=== PATIENT | male | born 1960 | race Caucasian/White ===

== ENCOUNTER 2021-12-01 11:32 | Emergency (ER) | payer OTHER ==
[~2021-12-01] VITALS: Ht 182.9 cm; Wt 90.7 kg
[2021-12-01] MEDS ORDERED: ONDANSETRON ODT4 MG PO (15:22)
--- NOTE | 2021-12-02 11:27 | EKG ---
[facility] [address] [facility] [place] [address] Signed Normal sinus rhythm Normal ECG No previous ECGs available Confirmed by BELKIS POLK MD ([id number]) on 12/02/2021 11:26:56 AM Electronically Signed By: BELKIS POLK MD 12/02/21 1127 PATIENT NAME: SAHIL ZAMORA Electrocardiogram DATE OF : 56 PHYSICIAN: BELKIS POLK MD REPORT #: [id number] REPORT IS CONFIDENTIAL AND NOT TO BE RELEASED WITHOUT AUTHORIZATION
== END 2021-12-01 15:26 | disposition home or self-care (01) ==
LOC: ED 11:32
DX: R19.7 Diarrhea, unspecified (principal); E86.0 Dehydration; Z20.822 Contact with and (suspected) exposure to COVID-19
CPT/HCPCS: 80048; 81001; 85025; 93005; 93010; 96374; 99284-25; C9803; J2405; J7030; U0003

== ENCOUNTER 2022-03-20 12:54 | Emergency (ER) | payer OTHER ==
[~2022-03-20] VITALS: Ht 182.9 cm; Wt 93.0 kg
[~2022-03-20 12:54] MED LIST: ONDANSETRON ODT4 MG PO
[2022-03-20] MEDS ORDERED: ONDANSETRON ODT8 MG PO (17:48)
--- NOTE | 2022-03-21 14:07 | EKG ---
[facility] [address] [facility] [place] [address] Signed Sinus rhythm with frequent premature ventricular complexes in a pattern of bigeminy Otherwise normal ECG When compared with ECG of 01-DEC-2021 11:55, premature ventricular complexes are now present Confirmed by BELKIS POLK MD ([id number]) on 03/21/2022 2:07:29 PM Electronically Signed By: BELKIS OPLK MD 03/21/22 1407 PATIENT NAME: SERASAHIL MORTON Electrocardiogram DATE OF : 56 PHYSICIAN: BELKIS POLK MD REPORT #: [id number] REPORT IS CONFIDENTIAL AND NOT TO BE RELEASED WITHOUT AUTHORIZATION
== END 2022-03-20 18:33 | disposition home or self-care (01) ==
LOC: ED 12:54
DX: K52.9 Noninfective gastroenteritis and colitis, unspecified (principal); R79.89 Other specified abnormal findings of blood chemistry; E83.42 Hypomagnesemia
CPT/HCPCS: 36415; 71045; 80053; 81001; 83735; 84484; 85025; 96365; 96375; 99284-25; J2405; J3475; J7030